=== PATIENT | female | born 1950 | race Caucasian/White ===

== ENCOUNTER 2016-08-16 09:38 | Outpatient (CLI) | payer OTHER ==
[2016-08-16 10:10] LABS: Bilirubin Negative (Negative); Blood, Urine Trace (Negative); Clarity Clear (Clear); Glucose, Urine (Dipstick) Negative (Negative); Leukocyte Negative (Negative); Nitrite Negative (Negative); Protein, Urine (Dipstick) Negative (Neg-Trace); Specific Gravity, Urine 1.015 (1.005-1.030); Urobilinogen 0.2 mg/dL (0.2-1.0)
[2016-08-16 11:00] LABS: Hemoglobin 12.9 g/dL (12.0-16.0); Mean Platelet Volume 8.3 fL (7.4-10.4); Platelet Count 258 thou/uL (130-400); RBC Distribution Width 12.8 % (11.5-14.5); Red Blood Cell (RBC) Count 4.15 mill/uL (4.20-5.40); White Blood Cell (WBC) Count 9.3 thou/uL (4.8-10.8)
[2016-08-16 11:18] LABS: Hemoglobin A1c 6.4 % (4.0-6.0)
[2016-08-16 11:26] LABS: ALT (SGPT) 24 U/L (0-55); AST (SGOT) 24 U/L (5-34); Albumin 3.8 g/dL (3.4-4.8); Alkaline Phosphatase 69 U/L (40-150); Anion Gap 15 mmol/L (10-20); BUN (Urea Nitrogen) 9 mg/dL (9.8-20.1); BUN/Creatinine Ratio 13.85; Bilirubin, Direct 0.1 mg/dL (0.1-0.3); Bilirubin, Total 0.3 mg/dL (0.2-1.2); Calc. Creatinine Clearance 0 mL/min (70-130); Calcium 9.4 mg/dL (7.8-10.44); Carbon Dioxide 26 mmol/L (23-31); Cardiac Risk 3.8 (Less than 4.5); Chloride 104 mmol/L (98-107); Cholesterol 128 mg/dL (< 200 Desired); Estimated GFR-MDRD Greater than 90; Glucose 126 mg/dL (80-115); HDL Cholesterol 34 mg/dL (>60 Neg Risk); LDL Cholesterol, Calculated 45 mg/dL; Phosphorus 4.3 mg/dL (2.3-4.7); Protein, Total 6.8 g/dL (5.8-8.1); Sodium 141 mmol/L (136-145); Triglycerides 247 mg/dL (Less than 150); Uric Acid 7.6 mg/dL (2.6-6.0)
[2016-08-16 17:03] LABS: Creatinine, Urine Less than 20.00 mg/dL (47-110); Protein, Urine Random Quant 15 mg/dL
== END 2016-08-16 09:39 | disposition home or self-care (01) ==
LOC: MADLAB 09:38
PROVIDERS: ATTEND Internal Medicine Nephrology
DX: E11.22 Type 2 diabetes mellitus with diabetic chronic kidney disease (principal); K86.1 Other chronic pancreatitis; I73.9 Peripheral vascular disease, unspecified; R80.9 Proteinuria, unspecified; E78.5 Hyperlipidemia, unspecified; I25.10 Atherosclerotic heart disease of native coronary artery without angina pectoris; I35.0 Nonrheumatic aortic (valve) stenosis; C44.91 Basal cell carcinoma of skin, unspecified; M19.90 Unspecified osteoarthritis, unspecified site; I12.9 Hypertensive chronic kidney disease with stage 1 through stage 4 chronic kidney disease, or unspecified chronic kidney disease; N18.1 Chronic kidney disease, stage 1
CPT/HCPCS: 36415; 80061; 80069; 80076; 81003; 82570; 83036; 84156; 84443; 84550; 85027; 85652

== ENCOUNTER 2016-12-31 14:51 | Outpatient (CLI) | payer OTHER ==
[2016-12-31 15:13] LABS: Bilirubin Negative (Negative); Blood, Urine Small (Negative); Clarity Hazy (Clear); Glucose, Urine (Dipstick) Negative (Negative); Icto Negative (Negative); Leukocyte Trace (Negative); Nitrite Negative (Negative); Protein, Urine (Dipstick) 30 mg/dL (Neg-Trace); Urobilinogen 0.2 mg/dL (0.2-1.0)
[2016-12-31 15:25] LABS: Albumin 3.9 g/dL (3.4-4.8); Anion Gap 13 mmol/L (10-20); BUN (Urea Nitrogen) 15 mg/dL (9.8-20.1); BUN/Creatinine Ratio 21.13; Calc. Creatinine Clearance 0 mL/min (70-130); Calcium 9.1 mg/dL (7.8-10.44); Carbon Dioxide 27 mmol/L (23-31); Chloride 103 mmol/L (98-107); Cholesterol 109 mg/dl (< 200 Desired); Estimated GFR-MDRD 83; Glucose 132 mg/dL (80-115); HDL Cholesterol 36 mg/dL (>60 Neg Risk); LDL Cholesterol, Calculated 29 mg/dL; Lipase 27 U/L (8-78); Phosphorus 3.2 mg/dL (2.3-4.7); Potassium 4.5 mmol/L (3.5-5.1); Sodium 138 mmol/L (136-145); Triglycerides 220 mg/dL (Less than 150)
[2016-12-31 15:37] LABS: Hemoglobin 12.2 g/dL (12.0-16.0); Mean Corpuscular HGB CONC 32.3 g/dL (32.0-36.0); Mean Corpuscular Hemoglobin 30.4 pg (27.0-31.0); Mean Corpuscular Volume 94.2 fl (81.0-99.0); Mean Platelet Volume 8.4 fL (7.4-10.4); Platelet Count 252 thou/uL (130-400); RBC Distribution Width 13.2 % (11.5-14.5); Red Blood Cell (RBC) Count 4.02 mill/uL (4.20-5.40); White Blood Cell (WBC) Count 11.1 thou/uL (4.8-10.8)
[2017-01-01 17:29] LABS: Creatinine, Urine 41.3 mg/dL (47-110)
== END 2016-12-31 14:52 | disposition home or self-care (01) ==
LOC: MADLAB 14:51
PROVIDERS: ATTEND Internal Medicine Nephrology
DX: E11.22 Type 2 diabetes mellitus with diabetic chronic kidney disease (principal); I12.9 Hypertensive chronic kidney disease with stage 1 through stage 4 chronic kidney disease, or unspecified chronic kidney disease; N18.1 Chronic kidney disease, stage 1; K86.1 Other chronic pancreatitis; I73.9 Peripheral vascular disease, unspecified; E78.5 Hyperlipidemia, unspecified; I25.10 Atherosclerotic heart disease of native coronary artery without angina pectoris; I35.0 Nonrheumatic aortic (valve) stenosis; C44.91 Basal cell carcinoma of skin, unspecified; M19.90 Unspecified osteoarthritis, unspecified site; R80.9 Proteinuria, unspecified
CPT/HCPCS: 36415; 80061; 80069; 81003; 82570; 83690; 84156; 85027; 85652

== ENCOUNTER 2017-11-02 16:00 | Emergency (ER) | payer OTHER ==
[2017-11-02] MEDS ORDERED: Ibuprofen 800 MG TAB ONE (16:51)
[2017-11-02] MEDS ORDERED: HYDROcodone/Acetaminophen 10/325 mg Tablet ONE (16:51)
[2017-11-02] MEDS ORDERED: Diazepam 5 MG TAB ONE (16:51)
--- NOTE | 2017-11-02 17:29 | RAD ---
LEFT SHOULDER THREE VIEWS: 11/02/2017 HISTORY: Injury. Trauma. Pain. COMPARISON: None. FINDINGS: There is a comminuted, impacted, and displaced fracture of the left humeral head/neck, with laterally displaced fracture fragments at the level of the greater tuberosity. There is no widening of the ac romioclavicular or coracoclavicular interspace. Scapular Y view is limited on the basis of motion. IMPRESSION: Comminuted, displaced, and impacted fracture of the left femoral head/neck. Orthopedic consultation advised. POS: [facility]
== END 2017-11-02 17:24 | disposition home or self-care (01) ==
LOC: MADERS 16:00
DX: S42.202A Unspecified fracture of upper end of left humerus, initial encounter for closed fracture (principal); E10.9 Type 1 diabetes mellitus without complications; I10 Essential (primary) hypertension; W19.XXXA Unspecified fall, initial encounter